=== PATIENT | male | born 1970 | race Hispanic/Latino ===

== ENCOUNTER → 2016-02-17 | Outpatient (CLI) | payer BC ==
[2016-02-17 10:25] LABS: BASOPHILS # (AUTO) 0.06 10*3/UL; BASOPHILS % (AUTO) 0.7 % (0-1); EOSINOPHILS % (AUTO) 3.2 % (0-8); HEMATOCRIT 44.4 % (42.0-52.0); HEMOGLOBIN 15.3 g/dL (14.0-18.0); IMM GRAN % (AUTO) 0.5 % (0-5); IMM GRAN# (AUTO) 0.05 10*3/UL; LYMPHOCYTES # (AUTO) 3.27 10*3/uL; LYMPHOCYTES % (AUTO) 35.8 % (10-50); MEAN CORPUSCULAR HEMOGLOBIN 28.9 PG (27-31); MEAN CORPUSCULAR HGB CONC 34.5 g/dL (33-37); MEAN PLATELET VOLUME 9.8 FL (7.4-12.2); MONOCYTES # (AUTO) 0.67 10*3/UL (0.3-0.8); MONOCYTES % (AUTO) 7.3 % (5-15); NEUTROPHILS % (AUTO) 52.5 % (50-80); RDW COEFFICIENT OF VARIATION 12.8 % (11.5-14.5); WHITE BLOOD COUNT 9.14 10^3/uL (4.8-10.8)
[2016-02-17 10:31] LABS: PLATELET MORPHOLOGY COMMENT NORMAL MORPHOLOGY (NORM)
[2016-02-17 10:55] LABS: POTASSIUM 4.5 meq/L (3.8-5.2); SODIUM 137 meq/L (135-145)
[2016-02-17 10:56] LABS: ASPARTATE AMINO TRANSFERASE 24 IU/L (21-57); BILIRUBIN,TOTAL 1.1 mg/dL (0.3-1.2); BLOOD UREA NITROGEN 14 mg/dL (7-22); CALCIUM 9.8 mg/dL (8.7-10.7); CHLORIDE 99 meq/L (98-112); CREATININE 0.7 mg/dL (0.70-1.50); EST GLOMERULAR FILTRATION > 60 (>60 ml/min/1.73m(2)); GLUCOSE 377 mg/dL (78-110); TOTAL PROTEIN 7.8 g/dL (6.1-8.0)
[2016-02-19 17:05] LABS: HEMOGLOBIN A1C 10.71 % (4.2-6.0); MEAN BLOOD GLUCOSE (CALC) 270.643 mg/dL
== END ==
LOC: MOB LAB 10:07
PROVIDERS: ATTEND Physician Assistant
DX: R73.9 Hyperglycemia, unspecified (principal); R35.0 Frequency of micturition; R01.1 Cardiac murmur, unspecified; E78.5 Hyperlipidemia, unspecified; R53.83 Other fatigue
CPT/HCPCS: 36415; 80053; 83036; 85025

== ENCOUNTER → 2016-02-20 | Outpatient (CLI) | payer BC | LOC: LAB 11:10 | PROVIDERS: ATTEND Physician Assistant Medical | DX: R53.83 Other fatigue (principal); E11.65 Type 2 diabetes mellitus with hyperglycemia | CPT/HCPCS: 36415; 84443 ==